=== PATIENT | male | born 1990 | race Caucasian/White ===

== ENCOUNTER 2016-12-24 21:38 | Emergency (ER) | payer SELFPAY ==
[~2016-12-24] VITALS: Ht 170.2 cm; Wt 79.4 kg
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
[2016-12-24 21:55] VITALS: BP 141/90
[2016-12-24] MEDS ORDERED: PROPOFOL 200 MG/20 ML VIAL IV ONE (21:55)
--- NOTE | 2016-12-24 22:10 | NUR ---
X-Ray at bedside.
--- NOTE | 2016-12-24 22:11 | NUR ---
Dr. Mendoza evaluating patient at bedside.
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
--- NOTE | 2016-12-24 22:22 | NUR ---
Oxygen applied at 3 L per minute via NASAL CANNULA. 02 saturation 96% by pulse oximetry.
--- NOTE | 2016-12-25 01:38 | NUR ---
Patient appears to be resting comfortably in bed. Vital Signs within normal limits. Respirations even and unlabored.
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
[2016-12-25 04:54] VITALS: BP 123/60
--- NOTE | 2016-12-25 04:54 | NUR ---
Patient discharged with v/s stable. Written and verbal after care instructions given and explained. Patient verbalized understanding. Ambulatory with steady gait. All questions addressed prior to discharge. Advised to follow up with PMD. PT PICKED UP BY CUONG MISHRA.
== END 2016-12-25 04:54 | disposition home or self-care (01) ==
LOC: MED 21:38
DX: S43.015A Anterior dislocation of left humerus, initial encounter (principal); F10.129 Alcohol abuse with intoxication, unspecified; R03.0 Elevated blood-pressure reading, without diagnosis of hypertension; Y04.2XXA Assault by strike against or bumped into by another person, initial encounter; Y93.89 Activity, other specified; Y92.009 Unspecified place in unspecified non-institutional (private) residence as the place of occurrence of the external cause; Y99.8 Other external cause status
CPT/HCPCS: 23650; 73020; 73030; 99152; 99285; J2704; Q0092